=== PATIENT | female | born 1995 | race African-American/Black ===

== ENCOUNTER 2022-06-24 15:40 | Outpatient (REF) | payer OTHER, SELFPAY ==
[2022-06-24 16:14] LABS: COVID-19 Test Positive (Negative)
== END 2022-06-24 15:41 | disposition home or self-care (01) ==
LOC: HO.LAB 15:40
PROVIDERS: Visit Provider Internal Medicine
DX: Z20.822 Contact with and (suspected) exposure to COVID-19 (principal)
CPT/HCPCS: 87635; C9803

== ENCOUNTER 2022-06-28 09:05 | Outpatient (REF) | payer OTHER, SELFPAY ==
[2022-06-28 10:09] LABS: COVID-19 Test Negative (Negative); IDNOW Serial# 08D9AD1C
== END 2022-06-28 09:06 | disposition home or self-care (01) ==
LOC: HO.LAB 09:05
PROVIDERS: Visit Provider Internal Medicine
DX: Z20.822 Contact with and (suspected) exposure to COVID-19 (principal)
CPT/HCPCS: 87635; C9803

== ENCOUNTER 2024-06-17 14:02 | Emergency (ER) | payer OTHER, SELFPAY ==
--- NOTE | ~2024-06-17 | US_ITS ---
EXAMINATION: US DIAGNOSTIC ULTRASOUND BREAST, LEFT CLINICAL INFORMATION: Swelling/pain and palpable lump behind the left nipple. COMPARISON: None available. TECHNIQUE: Ultrasound of the breast is performed with real-time schreiber scale imaging and color Doppler. FINDINGS: In the area of clinical concern in the left retroareolar region note is made of a complex cystic and solid lesion measuring 1.0 x 0.6 x 1.2 cm with peripheral and internal vascularity. The finding is located in the anterior most parenchyma underneath the skin. Comparison scanning of the right retroareolar region revealed a 0.9 x 0.3 x 0.7 cm anechoic avascular benign cystic structure. US/US breast LT limited IMPRESSION: In the area of clinical concern in the left retroareolar region note is made of a complex cystic and solid lesion measuring 1.0 x 0.6 x 1.2 cm with internal and peripheral vascularity. From the submitted images it is difficult to determine if the finding represents a ductal process or not. ASSESSMENT: BI-RADS 0 - Incomplete: Needs additional Imaging. RECOMMENDATION: Additional Imaging required Given the patient's age of 28 years consider left diagnostic mammography in the setting of palpable finding. Also, recommend focused left breast ultrasound evaluation in the presence of a radiologist. Recommend clinical correlation and close clinical follow-up.
[2024-06-17 14:27] VITALS: BP 125/80; PULSE 78; RESP 18; TEMP 37.2; O2SAT 100; BMI 27.2
--- NOTE | 2024-06-17 14:44 | ED.GENADULT ---
HPI - General Adult General Chief complaint: General Medical Stated complaint: Lump L breast Time Seen by Provider: 06/17/24 14:35 Source: patient Mode of arrival: ambulatory Limitations: no limitations History of Present Illness ED Provider: Barbara Ramires APRN HPI narrative: 28-year-old female with no known medical history presents the ER with complaints of 1 week of left breast swelling and pain. Patient denies any nipple drainage, fevers, chills. No previous history of abscesses. She does have a family history of breast cancer. Related Data Previous Rx's ?Medication ?Instructions ?Recorded clindamycin HCl 150 mg capsule 150 mg PO TID #21 caps 06/17/24 Allergies Allergy/AdvReac Type Severity Reaction Status Date / Time SEAFOOD Allergy Unknown UNKNOWN Uncoded 06/17/24 14:31 Review of Systems Review of Systems: Yes all other systems are reviewed and are negative Constitutional: Constitutional: Reports no additional constitutional complaints, Denies body ache(s), Denies chills, Denies fever(s), Denies headache(s) and Denies weakness Eyes: Eyes: Reports no additional eye complaints and Denies change in vision ENT: Reports system reviewed and no additional complaints, except as documented, Denies dizziness, Denies headache(s), Denies nasal congestion, Denies nasal discharge and Denies neck pain Cardiovascular: Cardiovascular: Reports no additional cardiovascular complaints, Denies chest pain, Denies leg edema and Denies dyspnea Respiratory: Respiratory: Reports no additional respiratory complaints, Denies cough and Denies dyspnea Gastrointestinal: Gastrointestinal: Reports no additional gastrointestinal complaints, Denies abdominal pain, Denies diarrhea, Denies nausea and Denies vomiting Genitourinary: Genitourinary: Reports no additional female genitourinary complaints and Denies urinary incontinence Musculoskeletal: Musculoskeletal: Reports no additional musculoskeletal complaints, Denies back pain, Denies arthralgias, Denies joint swelling, Denies neck pain, Denies numbness and Denies tingling Integumentary/Breasts: Skin/Breast: Reports system reviewed and no additional complaints, except as docu, Reports swelling and Denies rash Neurologic: Reports system reviewed and no additional complaints, except as documented, Denies Abnormal speech present, Denies dizziness, Denies headache(s), Denies numbness, Denies tingling and Denies weakness PMFSH Past Medical History Attestation statement: The following information was validated with the patient. Source: old records reviewed and nursing notes reviewed Social History Social History Advance Directives: No Advance Directives Information Provided: Yes Do you have a plan to hurt others: No Plan Physical Exam ED Vital Signs: Vital Signs - 24 hr 06/17/24 14:27 Temperature 98.9 F Pulse Rate 78 Respiratory Rate 18 Blood Pressure 125/80 Pulse Oximetry 100 Oxygen Delivery Method Room Air BMI result Body Mass Index 27.2 Const General: cooperative, healthy appearing, comfortable and no acute distress Orientation/consciousness: patient oriented x3 Limitations: no limitations HENMT Head: Yes normal to inspection Ears: hearing grossly normal bilaterally General nose exam: Normal external nose present Face and sinus: Yes normal facial exam Mouth: Normal oral and palatal mucosa present Throat: Yes posterior oropharynx normal Eyes General: appearance normal, both eyes and all related structures Pupils: Equal, round and reactive pupils present Neck Neck: Yes normal visual inspection Chest Chest palpation & inspection: normal inspection of the chest Breast/axilla palpation: no axillary lymphadenopathy Chest/axillae images: 1. palpable firm and tender mass behind the areola, no nipple drainage Resp Effort & Inspection: normal respiratory effort Auscultation: clear to auscultation bilaterally Cardio Rate: regular rate Rhythm: regular rhythm Peripheral pulses: Peripheral pulses 2+ throughout GI Inspection: Yes normal to inspection Palpation (GI): Soft to palpation and nontender Auscultation: normal bowel sounds Back/Spine/Pelvis Thoracic/Lumbar Spine: thoracic and lumbar spine normal to inspection Skin General skin exam: no rashes or lesions noted Neuro General: patient oriented x3, no focal motor deficits and normal sensation to monofilament Cranial nerves: Yes Equal, round and reactive pupils present Cognition (Neuro): normal cognition Speech: No Abnormal speech present Gait exam (Neuro): Normal gait present Motor exam (neuro): 5/5 motor strength present throughout Extrem General: Yes normal to inspection Course Course Course Narrative: Ultrasound shows IMPRESSION: In the area of clinical concern in the left retroareolar region note is made of a complex cystic and solid lesion measuring 1.0 x 0.6 x 1.2 cm with internal and peripheral vascularity. From the submitted images it is difficult to determine if the finding represents a ductal process or not. ASSESSMENT: BI-RADS 0 - Incomplete: Needs additional Imaging. RECOMMENDATION: Additional Imaging required Given the patient's age of 28 years consider left diagnostic mammography in the setting of palpable finding. Also, recommend focused left breast ultrasound evaluation in the presence of a radiologist. Recommend clinical correlation and close clinical follow-up. Reviewed this with the patient. [facility] In the meantime I will put her on antibiotic. Reviewed worrisome signs and symptoms of when to return to the emergency room. Comfortable plan for discharge home. Medical Decision Making Medical Decision Making MDM Narrative: 28-year-old female with no known medical history presents the ER with complaints of 1 week of left breast swelling and pain. Patient denies any nipple drainage, fevers, chills. No previous history of abscesses. She does have a family history of breast cancer. +mass noted left breast which is tender behind the areola Will need US to eval for abscess If negative will need to follow-up for mammogram outpatient Differential Diagnosis Differential Diagnoses: The differential diagnosis associated with the presentation includes abscess, cyst, malignancy Admission/Observation Consideration of admission/observation: Escalation of care including admission/observation considered Ultrasound shows a cystic area. They do recommend outpatient advanced imaging. No evidence of large abscess that requires urgent surgical consultation and or admission Independent Interpretation I performed an independent interpretation of an: Ultrasound Interpretation: I independently reviewed the ultrasound agree with the radiology report Radiology Impression Discussion of test interpretation with radiology: I have reviewed the radiologist's reading. Radiologist Impression: [address] [address] Ultrasound Report Signed Patient: Ayana Crane MR#: [id number] : 1995 Acct:[id number] Age/Sex: 28 / F ADM Date: 06/17/24 Loc: .ED Attending Dr: Ordering Physician: Barbara Gale NP Date of Service: 06/17/24 Procedure(s): US breast LT limited Accession Number(s): [id number] cc: Physician,Unknown ; Barbara Gale NP~ EXAMINATION: US DIAGNOSTIC ULTRASOUND BREAST, LEFT CLINICAL INFORMATION: Swelling/pain and palpable lump behind the left nipple. COMPARISON: None available. TECHNIQUE: Ultrasound of the breast is performed with real-time schreiber scale imaging and color Doppler. FINDINGS: In the area of clinical concern in the left retroareolar region note is made of a complex cystic and solid lesion measuring 1.0 x 0.6 x 1.2 cm with peripheral and internal vascularity. The finding is located in the anterior most parenchyma underneath the skin. Comparison scanning of the right retroareolar region revealed a 0.9 x 0.3 x 0.7 cm anechoic avascular benign cystic structure. US/US breast LT limited IMPRESSION: In the area of clinical concern in the left retroareolar region note is made of a complex cystic and solid lesion measuring 1.0 x 0.6 x 1.2 cm with internal and peripheral vascularity. From the submitted images it is difficult to determine if the finding represents a ductal process or not. ASSESSMENT: BI-RADS 0 - Incomplete: Needs additional Imaging. RECOMMENDATION: Additional Imaging required Given the patient's age of 28 years consider left diagnostic mammography in the setting of palpable finding. Also, recommend focused left breast ultrasound evaluation in the presence of a radiologist. Recommend clinical correlation and close clinical follow-up. Prescription Management I considered prescription management with: Antibiotic Discharge Plan Discharge Clinical Impression: Cyst of breast Patient Disposition: Home, Self-Care Instructions: Breast Mass (ED) Additional Instructions: Based on the ultrasound today you do have a cystic structure in the left breast. The radiologist recommends that you have a left-sided mammogram as well as a more focused ultrasound of the left breast. They offered the services at the [facility]'s [place]. You may need a referral from her primary care doctor. You can call the [facility] determine this. There [phone]. They are located at [address] [place] [address] in [facility]. It is VERY important that you do this. Return for any worsening symptoms. In the meantime please apply warm compresses to the area. Please take the antibiotics as prescribed. Prescriptions: New clindamycin HCl 150 mg capsule 150 mg PO TID Qty: 21 0RF Referrals: Physician,Unknown J [Primary Care Provider] - 1 week Print Language: Bots[place]
[2024-06-17 17:57] VITALS: BP 125/80; PULSE 78; RESP 18; TEMP 37.2; O2SAT 100
== END 2024-06-17 17:57 | disposition home or self-care (01) ==
PROVIDERS: Emergency Provider Emergency Medicine
DX: N60.02 Solitary cyst of left breast (principal); N64.4 Mastodynia
CPT/HCPCS: 76642; 99282; 99283; 99284